=== PATIENT | female | born 1945 | race Caucasian/White ===

== ENCOUNTER 2017-03-02 17:52 | Observation (INO) | payer OTHER, MEDICAID ==
[2017-03-02] MEDS ORDERED: ZOFRAN INJ 4 MG VIAL IVP PRN (18:23)
[2017-03-02] MEDS ORDERED: NS 1000 ML 1,000 ML IV ONE (19:00)
[2017-03-02 20:57] LABS: BILIRUBIN,URINE NEGATIVE (NEGATIVE); BLOOD/HEMOGLOBIN,URINE 3+ (NEGATIVE); GLUCOSE, URINE NEGATIVE (NEGATIVE); KETONES,URINE 3+ (NEGATIVE); LEUKOCYTE ESTERASE ,URINE 3+ (NEGATIVE); NITRITES,URINE NEGATIVE (NEGATIVE); PROTEIN,URINE 2+ (NEGATIVE); UROBILINOGEN,URINE NORMAL (NORMAL)
[2017-03-02 21:04] LABS: AMORPHOUS SEDIMENT,UR 1+ /HPF (NEGATIVE); APPEARANCE,URINE HAZY (CLEAR); BACTERIA,URINE 2+ /HPF (NEGATIVE); COLOR,URINE DARK YELLOW (YELLOW); HYALINE CASTS, URINE FEW /LPF (NEGATIVE); RBC,URINE 15-17 /HPF (NEGATIVE); SQUAMOUS EPITHELIAL CELL,UR FEW /HPF (NEGATIVE)
[2017-03-02 21:39] LABS: BASOPHILS % (AUTO) 0.6 % (0.2-1.0); EOSINOPHILS % (AUTO) 0.3 % (0.9-2.9); HEMATOCRIT 34.4 % (42.0-54.0); HEMOGLOBIN 11.2 g/dL (13.5-18.0); LYMPHOCYTES # (AUTO) 1.3 X10^3/uL (1.3-2.9); LYMPHOCYTES % (AUTO) 17.8 % (21.0-51.0); MEAN CORPUSCULAR HEMOGLOBIN 28.4 pg (27.0-34.0); MEAN CORPUSCULAR HGB CONC 32.5 g/dL (33.0-35.0); MEAN CORPUSCULAR VOLUME 87.3 fL (80.0-100.0); MEAN PLATELET VOLUME 9.1 fL (7.4-11.0); MONOCYTES # (AUTO) 0.6 x10^3/uL (0.3-0.8); MONOCYTES % (AUTO) 8.3 % (0.0-13.0); NEUTROPHILS # (AUTO) 5.2 x10^3/uL (2.2-4.8); PLATELET COUNT 176 X10^3/uL (150.0-450.0); RED BLOOD COUNT 3.94 X10^6/uL (4.7-6.0); RED CELL DISTRIBUTION WIDTH 13.7 % (11.6-16.5); WHITE BLOOD COUNT 7.1 X10^3/uL (3.6-10.0)
[2017-03-02 21:53] LABS: ALANINE AMINOTRANSFERASE 24 Units/L (12-78); ALBUMIN 3.6 g/dL (3.4-5.0); ALKALINE PHOSPHATASE 33 Units/L (46-116); AMYLASE 44 Units/L (25-115); ASPARTATE AMINO TRANSFERASE 27 Units/L (15-37); BLOOD UREA NITROGEN 15 mg/dL (7-18); CARBON DIOXIDE 29.1 mmol/L (21-32); CHLORIDE 106 mmol/L (98-107); CREATININE 0.72 mg/dL (0.70-1.30); GLUCOSE 98 mg/dL (65-99); LIPASE 90 Units/L (73-393); SODIUM 143 mmol/L (136-145); TOTAL PROTEIN 7.7 g/dL (6.4-8.2); eGFR BLACK RACES > 60 (>60); eGFR NON BLACK RACES > 60 (>60)
[2017-03-02 22:51] VITALS: BMI 25.8
[2017-03-03] MEDS: PROTONIX INJ 40 MG VIAL IVP SCH ×3 (00:22→21:35)
[2017-03-03 06:11] LABS: BASOPHILS # (AUTO) 0.1 X10^3/uL (0.0-0.1); BASOPHILS % (AUTO) 0.9 % (0.2-1.0); EOSINOPHILS # (AUTO) 0.1 x10^3/uL (0.0-0.2); EOSINOPHILS % (AUTO) 1.3 % (0.9-2.9); HEMATOCRIT 31.3 % (36.0-47.0); HEMOGLOBIN 10.3 g/dL (12.0-16.0); LYMPHOCYTES # (AUTO) 1.4 X10^3/uL (1.3-2.9); LYMPHOCYTES % (AUTO) 25.8 % (21.0-51.0); MEAN PLATELET VOLUME 9.6 fL (7.4-11.0); MONOCYTES # (AUTO) 0.6 x10^3/uL (0.3-0.8); MONOCYTES % (AUTO) 10.8 % (0.0-13.0); NEUTROPHILS # (AUTO) 3.3 x10^3/uL (2.2-4.8); NEUTROPHILS % (AUTO) 61.2 % (42.0-75.0); PLATELET COUNT 148 X10^3/uL (150.0-450.0); RED BLOOD COUNT 3.56 X10^6/uL (3.5-5.4); RED CELL DISTRIBUTION WIDTH 13.2 % (11.6-16.5); WHITE BLOOD COUNT 5.3 X10^3/uL (3.6-10.0)
[2017-03-03 06:57] LABS: ALANINE AMINOTRANSFERASE 21 Units/L (12-78); ALBUMIN 2.9 g/dL (3.4-5.0); ALKALINE PHOSPHATASE 31 Units/L (46-116); ASPARTATE AMINO TRANSFERASE 24 Units/L (15-37); BLOOD UREA NITROGEN 12 mg/dL (7-18); CALCIUM 8.5 mg/dL (8.5-10.1); CARBON DIOXIDE 28.2 mmol/L (21-32); CHLORIDE 110 mmol/L (98-107); COR CA(FOR HYPOALB) 9.4 mg/dL (8.5-10.1); CREATININE 0.68 mg/dL (0.55-1.02); GLUCOSE 77 mg/dL (65-99); SODIUM 146 mmol/L (136-145); TOTAL PROTEIN 6.5 g/dL (6.4-8.2); eGFR BLACK RACES > 60 (>60); eGFR NON BLACK RACES > 60 (>60)
--- NOTE | 2017-03-03 07:05 | CT ---
CT abdomen and pelvis without contrast Indication: Severe abdominal pain Comparison: None Technique: CT images of the abdomen and pelvis were obtained without contrast. Automatic exposure co ntrol was utilized. Findings: There is moderate to advanced spine DJD with lumbar dextroscoliosis. No aggressive osseous lesion. The lung bases are clear. The gallbladder is surgically absent. Within the limitations of a noncontrast study, the liver, sple en, stomach, duodenum, pancreas, adrenals, and right kidney are unremarkable. There is a nonobstruct ing 5 mm left lower pole renal stone. No ureteral stone identified. No significant thickening or dil atation of the lower GI tract is observed. The appendix is not identified, but there is no marked pe ricecal inflammation to suggest acute appendicitis. The uterus is absent. The urinary bladder is unr emarkable. There is liquid fecal material within the rectum, consistent with diarrhea, but the rectu m was otherwise unremarkable. No free fluid or adenopathy identified. Impression: No acute process or other etiology for patient's symptoms identified. Nonobstructing left nephrolithiasis and other findings as above. Reported By:
[2017-03-03] MEDS: NS 1000 ML 1,000 ML IV SCH ×2 (07:23→21:36)
[2017-03-03] MEDS ORDERED: TUCKS MEDICATED PAD TOP PRN (10:59)
[2017-03-03] MEDS: ROCEPHIN VIAL 1 GM 1 GM in NS 50 ML IV + SPIKE MINIBAG* 50 ML IV SCH (11:23)
[2017-03-03] MEDS: BUTT CREAM (COMPOUND) TOP SCH (11:23)
[2017-03-03] MEDS: NYSTATIN CREAM TOP SCH (11:23)
[2017-03-03] MEDS: VITAMIN B-12 PO SCH (11:24)
[2017-03-03] MEDS: PATIENT'S HOME MEDICATION (Mirabegron [Myrbetriq] 25 MG) PO SCH ×2 (11:51→11:52)
[2017-03-03] MEDS: THYROID 60 MG PO SCH (11:51)
[2017-03-03 11:56] LABS: CRYPTOSPORIDIUM PARVUM ANTIGEN NEGATIVE (NEGATIVE); GIARDIA LAMBLIA ANTIGEN NEGATIVE (NEGATIVE)
[2017-03-03] MEDS ORDERED: DETROL LA 4 MG CAP EXT REL PO SCH (12:00)
--- NOTE | 2017-03-03 15:29 | DR.H&P ---
H&P - History & Physical for Day of: H&P Date: 03/02/17 - Chief Complaint Chief Complaint: abdominal pain, nausea vomiting diarrhea - Allergies Allergies/Adverse Reactions: Allergies Allergy/AdvReac Type Severity Reaction Status Date / Time No Known Drug Allergy Allergy Verified 03/02/17 22:52 - History of Present Illness History of Present Illness: patient is a 71-year-old white female who was admitted with abdominal pain nausea vomiting and diarrhea. Patient has a past medical history of gastric tumor which was removed at [facility] in [place]. Patient's daughter states tumor came back with clear margins. Patient is not currently on any chemotherapy or radiation. Patient's oncologist is located at [facility]. Patient also has a history of DVT and is on Coumadin therapy. He states patient had been doing fine post operatively until one day prior to admission she had loss of appetite and onset of nausea and vomiting and diarrhea. He should've CT scan of abdomen and pelvis had no acute findings. Patient was noted to have a UTI culture pending. Plan to continue IV hydration pain and nausea control, repeat a.m. labs. - Past Medical History Past Medical History: Arthritis, Dyslipidemia, GERD, Hypertension, Hypothyroidism, Kidney Stones Additional Medical History: dvt - Past Surgical History Surgical History: , Cholecystectomy, Hysterectomy - Social History Does patient currently use any type of tobacco product: No Have you used tobacco products in the last 12 months: No Type of Tobacco Use: None Alcohol Use: None Drug Use: None - Medications Home Medications: Cyanocobalamin [VITAMIN B-12 500 MCG *] 1,000 mcg PO DAILY 03/03/17 [History Confirmed 03/03/17] Mirabegron [Myrbetriq] 25 mg PO DAILY 03/03/17 [History Confirmed 03/03/17] Nystatin (Topical) [Nystatin] 1 applic TOP BID 03/03/17 [History Confirmed 03/03] Pantoprazole Sodium 40 mg [PROTONIX 40 MG *] 1 tab PO DAILY 03/03/17 [History Confirmed 03/03/17] Thyroid [Portal Thyroid (pork)] 60 mg PO DAILY 03/03/17 [History Confirmed 03/03] Warfarin Sodium [COUMADIN 7.5 MG *] 7.5 mg PO DAILY 03/03/17 [History Confirmed 03/03/17] Warfarin Sodium [Warfarin Sodium] 5 mg PO DAILY 03/03/17 [History Confirmed ] - Review of Systems Constitutional: Weakness Eyes: No Symptoms Reported ENT: No Symptoms Reported Respiratory: No Symptoms Reported Cardiovascular: Edema Gastrointestinal: Nausea, Vomiting, Abdominal Pain, Diarrhea Genitourinary: No Symptoms Reported Musculoskeletal: Back Pain, Leg Pain Skin: No Symptoms Reported Neurological: No Symptoms Reported - Physical Exam Vital Signs: Temperature 97.7 F Pulse Rate [Right Brachial] 68 Pulse Rate [Right] 70 Respiratory Rate 18 Blood Pressure [Right Arm] 138/65 O2 Sat by Pulse Oximetry 94 Oriented: Normal Eyes: Normal Ear: Normal Nose: Normal Throat: Dry Respiratory: Clear Throughout Cardiovascular: Normal, Edema : Normal Auscultation: Bowel Sounds: Normal Palpation: Normal Tenderness: Diffuse Skin: Decreased Turgur Musculoskeletal: Back:Lumbar Psychiatric: Normal Mood Description: Calm Speech Pattern: Clear, Appropriate - Assessment/Plan (1) Abdominal pain Qualifiers: Abdominal location: A Status: Acute Plan: ADMIT FOR IV HYDRATION, STOOL STUDIES. TREATMENT OF UTI, IV ATBX THERAPY. VOLUME REPLACMENT, PAIN AND NAUSEA CONTROL. CT SCAN ABD/PELVIS (2) Nausea, vomiting and diarrhea Status: Acute (3) History of gastric cancer Status: Acute (4) Hypothyroid Qualifiers: Hypothyroidism type: H Status: Acute (5) GERD (gastroesophageal reflux disease) Qualifiers: Esophagitis presence: E Status: Acute
--- NOTE | 2017-03-03 15:33 | PCM.PROG ---
Progress Note - Progress Note for Day of Date: 03/03/17 - Subjective Subjective: patient was admitted one day ago with abdominal pain nausea vomiting and diarrhea. Patient states she feels much improved this a.m. with mild abdominal cramping. Patient denies any vomiting. Patient did complain of loose stool this a.m. and stool specimens were collected. Patient was noted to have a UTI on admission, will continue IV antibiotics cultures are pending. Attempt to obtain pathology report from [facility] following gastric tumor removal. Plan to continue IV hydration pain and nausea control will repeat a.m. labs - Past Medical Family Social History Past Med/Fam/Surg Hx: No changes since H&P Allergies: Allergies No Known Drug Allergy Allergy (Verified 03/02/17 22:52) - Review of Systems ROS: No change since H&P - Vital Signs and I&O's Vital Signs: Temperature 97.7 F Pulse Rate [Right Brachial] 68 Pulse Rate [Right] 70 Respiratory Rate 18 Blood Pressure [Right Arm] 138/65 O2 Sat by Pulse Oximetry 94 Intake and Output: Intake & Output 03/01/17 03/02/17 03/03/17 03/04/17 11:59 11:59 11:59 11:59 Intake Total 451 Balance 451 - Physical Exam Oriented: Normal Eyes: Normal Ear: Normal Nose: Normal Throat: Dry Cardiovascular: Normal, Edema : Normal Auscultation: Bowel Sounds: Normal Tenderness: Epigastric Skin: Decreased Turgur Musculoskeletal: Back:Lumbar Psychiatric: Normal Mood Description: Calm Speech Pattern: Clear, Appropriate - Laboratory and Diagnostics Result Diagrams: 03/03/17 04:25 03/03/17 04:25 Labs: 03/02/17 20:30 Urine,Clean Catch Urine Culture - Final 03/03/17 09:44 Stool - Final Laboratory WBC 5.3 X10^3/uL (3.6-10.0) 03/03/17 04:25 RBC 3.56 X10^6/uL (3.5-5.4) 03/03/17 04:25 Hgb 10.3 g/dL (12.0-16.0) L 03/03/17 04:25 Hct 31.3 % (36.0-47.0) L 03/03/17 04:25 MCV 88.0 fL (80.0-100.0) 03/03/17 04:25 MCH 29.0 pg (27.0-34.0) 03/03/17 04:25 MCHC 33.0 g/dL (33.0-35.0) 03/03/17 04:25 RDW 13.2 % (11.6-16.5) 03/03/17 04:25 Plt Count 148 X10^3/uL (150.0-450.0) L 03/03/17 04:25 MPV 9.6 fL (7.4-11.0) 03/03/17 04:25 Neut % 61.2 % (42.0-75.0) 03/03/17 04:25 Lymph % 25.8 % (21.0-51.0) 03/03/17 04:25 [place] % 10.8 % (0.0-13.0) 03/03/17 04:25 Eos % 1.3 % (0.9-2.9) 03/03/17 04:25 Baso % 0.9 % (0.2-1.0) 03/03/17 04:25 Neut # 3.3 x10^3/uL (2.2-4.8) 03/03/17 04:25 Lymph # 1.4 X10^3/uL (1.3-2.9) 03/03/17 04:25 [place] # 0.6 x10^3/uL (0.3-0.8) 03/03/17 04:25 Eos # 0.1 x10^3/uL (0.0-0.2) 03/03/17 04:25 Baso # 0.1 X10^3/uL (0.0-0.1) 03/03/17 04:25 Absolute Nucleated RBC 0.1 /100WBC 03/03/17 04:25 INR Target Range - 03/03/17 04:25 INR 2.62 (0.8-1.3) H 03/03/17 04:25 Sodium 146 mmol/L (136-145) H 03/03/17 04:25 Corrected Sodium TNP 03/03/17 04:25 Potassium 3.6 mmol/L (3.5-5.1) 03/03/17 04:25 Chloride 110 mmol/L (98-107) H 03/03/17 04:25 Carbon Dioxide 28.2 mmol/L (21-32) 03/03/17 04:25 BUN 12 mg/dL (7-18) 03/03/17 04:25 Creatinine 0.68 mg/dL (0.55-1.02) 03/03/17 04:25 Est GFR (MDRD) Af Amer > 60 (>60) 03/03/17 04:25 Est GFR (MDRD) Non-Af > 60 (>60) 03/03/17 04:25 Glucose 77 mg/dL (65-99) 03/03/17 04:25 Calcium 8.5 mg/dL (8.5-10.1) 03/03/17 04:25 Corrected Calcium 9.4 mg/dL (8.5-10.1) 03/03/17 04:25 Total Bilirubin 0.80 mg/dL (0.2-1.0) 03/03/17 04:25 AST 24 Units/L (15-37) 03/03/17 04:25 ALT 21 Units/L (12-78) 03/03/17 04:25 Alkaline Phosphatase 31 Units/L (46-116) L 03/03/17 04:25 Total Protein 6.5 g/dL (6.4-8.2) 03/03/17 04:25 Albumin 2.9 g/dL (3.4-5.0) L 03/03/17 04:25 Globulin 3.6 g/dL (2.5-4.5) 03/03/17 04:25 Albumin/Globulin Ratio 0.8 Ratio (1.1-2.1) L 03/03/17 04:25 Amylase 44 Units/L (25-115) 03/02/17 21:10 Lipase 90 Units/L (73-393) 03/02/17 21:10 Specimen Type Clean catch urine 03/02/17 20:30 Urine Color Dark yellow (YELLOW) 03/02/17 20:30 Urine Appearance Hazy (CLEAR) 03/02/17 20:30 Urine pH 5.0 (5.0 - 8.0) 03/02/17 20:30 Ur Specific [place] 1.025 (1.000-1.030) 03/02/17 20:30 Urine Protein 2+ (NEGATIVE) 03/02/17 20:30 Urine Glucose (UA) Negative (NEGATIVE) 03/02/17 20:30 Urine Ketones 3+ (NEGATIVE) 03/02/17 20:30 Urine Occult Blood 3+ (NEGATIVE) 03/02/17 20:30 Urine Nitrite Negative (NEGATIVE) 03/02/17 20:30 Urine Bilirubin Negative (NEGATIVE) 03/02/17 20:30 Urine Urobilinogen Normal (NORMAL) 03/02/17 20:30 Ur Leukocyte Esterase 3+ (NEGATIVE) 03/02/17 20:30 Urine RBC 15-17 /HPF (NEGATIVE) 03/02/17 20:30 Urine WBC 24-26 /HPF (NEGATIVE) 03/02/17 20:30 Ur Squamous Epith Cells Few /HPF (NEGATIVE) 03/02/17 20:30 Amorphous Sediment 1+ /HPF (NEGATIVE) 03/02/17 20:30 Urine Bacteria 2+ /HPF (NEGATIVE) 03/02/17 20:30 Hyaline Casts Few /LPF (NEGATIVE) 03/02/17 20:30 Ur Culture Indicated? Yes/culture set up 03/02/17 20:30 Stool Description 5g brown liquid 03/03/17 09:44 Stl Occult Blood (IFOB) Positive (NEGATIVE) A 03/03/17 09:44 Cryptosporid parvum Ag Negative (NEGATIVE) 03/03/17 09:44 E. histolytica Antigen Negative (NEGATIVE) 03/03/17 09:44 Giardia lamblia Ag Negative (NEGATIVE) 03/03/17 09:44 - Plan (1) UTI (urinary tract infection) Status: Acute Qualifiers: Urinary tract infection type: U Hematuria presence: H Indwelling urinary catheter type: I Encounter type: E Plan: CONTINUE IV ATBX, CULTURE PENDING. IV AND PO HYDRATION (2) Abdominal pain Status: Acute Qualifiers: Abdominal location: A Plan: CONTINUE PAIN CONTROL. STOOL STUDIES PENDING. REPEAT AM LABS (3) Nausea, vomiting and diarrhea Status: Acute (4) History of gastric cancer Status: Acute (5) Hypothyroid Status: Acute Qualifiers: Hypothyroidism type: H Plan: RESUME HOME MEDS (6) GERD (gastroesophageal reflux disease) Status: Acute Qualifiers: Esophagitis presence: E
[2017-03-04 06:16] LABS: BASOPHILS % (AUTO) 0.8 % (0.2-1.0); EOSINOPHILS # (AUTO) 0.1 x10^3/uL (0.0-0.2); EOSINOPHILS % (AUTO) 2.6 % (0.9-2.9); HEMATOCRIT 31.3 % (36.0-47.0); HEMOGLOBIN 10.3 g/dL (12.0-16.0); LYMPHOCYTES # (AUTO) 1.9 X10^3/uL (1.3-2.9); LYMPHOCYTES % (AUTO) 35.2 % (21.0-51.0); MEAN CORPUSCULAR HEMOGLOBIN 29.1 pg (27.0-34.0); MEAN CORPUSCULAR HGB CONC 32.9 g/dL (33.0-35.0); MEAN CORPUSCULAR VOLUME 88.4 fL (80.0-100.0); MEAN PLATELET VOLUME 9.5 fL (7.4-11.0); MONOCYTES # (AUTO) 0.5 x10^3/uL (0.3-0.8); MONOCYTES % (AUTO) 9.8 % (0.0-13.0); NEUTROPHILS # (AUTO) 2.8 x10^3/uL (2.2-4.8); NEUTROPHILS % (AUTO) 51.6 % (42.0-75.0); PLATELET COUNT 156 X10^3/uL (150.0-450.0); RED BLOOD COUNT 3.55 X10^6/uL (3.5-5.4); RED CELL DISTRIBUTION WIDTH 13.3 % (11.6-16.5); WHITE BLOOD COUNT 5.4 X10^3/uL (3.6-10.0)
[2017-03-04 06:18] LABS: ALANINE AMINOTRANSFERASE 22 Units/L (12-78); ALBUMIN 2.9 g/dL (3.4-5.0); ALKALINE PHOSPHATASE 32 Units/L (46-116); ASPARTATE AMINO TRANSFERASE 25 Units/L (15-37); BLOOD UREA NITROGEN 10 mg/dL (7-18); CALCIUM 8.6 mg/dL (8.5-10.1); CARBON DIOXIDE 27.2 mmol/L (21-32); CHLORIDE 109 mmol/L (98-107); COR CA(FOR HYPOALB) 9.5 mg/dL (8.5-10.1); CREATININE 0.64 mg/dL (0.55-1.02); GLUCOSE 83 mg/dL (65-99); SODIUM 145 mmol/L (136-145); TOTAL PROTEIN 6.5 g/dL (6.4-8.2); eGFR BLACK RACES > 60 (>60); eGFR NON BLACK RACES > 60 (>60)
[2017-03-04] MEDS ORDERED: COUMADIN TAB 5 MG PO SCH (09:00)
[2017-03-04] MEDS ORDERED: COUMADIN TAB 7.5 MG PO SCH (09:00)
[2017-03-04] MEDS: ROCEPHIN VIAL 1 GM 1 GM in NS 50 ML IV + SPIKE MINIBAG* 50 ML IV SCH (09:42)
[2017-03-04] MEDS: PROTONIX INJ 40 MG VIAL IVP SCH (09:43)
[2017-03-04] MEDS: VITAMIN B-12 PO SCH (09:43)
[2017-03-04] MEDS: NYSTATIN CREAM TOP SCH (11:14)
[2017-03-04] MEDS: BUTT CREAM (COMPOUND) TOP SCH (11:14)
[2017-03-04] MEDS: THYROID 60 MG PO SCH (12:17)
[2017-03-04] MEDS: PATIENT'S HOME MEDICATION (Mirabegron [Myrbetriq] 25 MG) PO SCH (12:17)
[2017-03-04 15:56] VITALS: BP 125/63
== END 2017-03-04 16:25 | disposition home or self-care (01) ==
LOC: EDSEX 17:52 → MED/SURG 17:52
PROVIDERS: ADMIT Internal Medicine; ATTEND Internal Medicine
DX: R10.84 Generalized abdominal pain (principal); R94.31 Abnormal electrocardiogram [ECG] [EKG]; R11.2 Nausea with vomiting, unspecified; N20.0 Calculus of kidney; Z79.01 Long term (current) use of anticoagulants; N39.0 Urinary tract infection, site not specified; Z86.718 Personal history of other venous thrombosis and embolism; E78.2 Mixed hyperlipidemia; K21.9 Gastro-esophageal reflux disease without esophagitis; I10 Essential (primary) hypertension; E03.8 Other specified hypothyroidism; Z85.028 Personal history of other malignant neoplasm of stomach
CPT/HCPCS: 36415; 74176; 80053; 81001; 82150; 82270; 83690; 85025; 85610; 87045; 87086; 87328; 87329; 87336; 87427; 87899; 93005; 93010; 94760; A4222; C9113; G0378; J0696

== ENCOUNTER 2018-08-13 11:58 | Observation (INO) ==
[2018-08-13] MEDS ORDERED: TYLENOL 500 MG TAB EXTRA STRENGTH PO PRN (13:55)
[2018-08-13 14:33] LABS: BASOPHILS # (AUTO) 0.1 X10^3/uL (0.0-0.1); BASOPHILS % (AUTO) 1.1 % (0.2-1.0); EOSINOPHILS # (AUTO) 0.1 x10^3/uL (0.0-0.2); EOSINOPHILS % (AUTO) 1.9 % (0.9-2.9); HEMOGLOBIN 12.3 g/dL (12.0-16.0); LYMPHOCYTES # (AUTO) 1.4 X10^3/uL (1.3-2.9); LYMPHOCYTES % (AUTO) 27.3 % (21.0-51.0); MEAN CORPUSCULAR HEMOGLOBIN 31.3 pg (27.0-34.0); MEAN CORPUSCULAR HGB CONC 34.2 g/dL (33.0-35.0); MEAN CORPUSCULAR VOLUME 91.5 fL (80.0-100.0); MEAN PLATELET VOLUME 8.8 fL (7.4-11.0); MONOCYTES # (AUTO) 0.4 x10^3/uL (0.3-0.8); MONOCYTES % (AUTO) 7.6 % (0.0-13.0); NEUTROPHILS # (AUTO) 3.2 x10^3/uL (2.2-4.8); NEUTROPHILS % (AUTO) 62.1 % (42.0-75.0); PLATELET COUNT 190 X10^3/uL (150.0-450.0); RED BLOOD COUNT 3.94 X10^6/uL (3.5-5.4); RED CELL DISTRIBUTION WIDTH 14.4 % (11.6-16.5); WHITE BLOOD COUNT 5.1 X10^3/uL (3.6-10.0)
[2018-08-13 14:44] LABS: ALANINE AMINOTRANSFERASE 23 Units/L (12-78); ALBUMIN 3.4 g/dL (3.4-5.0); ALKALINE PHOSPHATASE 53 Units/L (46-116); ASPARTATE AMINO TRANSFERASE 22 Units/L (15-37); BLOOD UREA NITROGEN 15 mg/dL (7-18); CALCIUM 8.1 mg/dL (8.5-10.1); CARBON DIOXIDE 26.7 mmol/L (21-32); CHLORIDE 105 mmol/L (98-107); CREATININE 0.87 mg/dL (0.55-1.02); SODIUM 140 mmol/L (136-145); TOTAL PROTEIN 7.5 g/dL (6.4-8.2); eGFR NON BLACK RACES > 60 (>60)
[2018-08-13 15:29] LABS: BILIRUBIN,URINE NEGATIVE (NEGATIVE); BLOOD/HEMOGLOBIN,URINE NEGATIVE (NEGATIVE); GLUCOSE, URINE NEGATIVE (NEGATIVE); KETONES,URINE NEGATIVE (NEGATIVE); LEUKOCYTE ESTERASE ,URINE 1+ (NEGATIVE); NITRITES,URINE NEGATIVE (NEGATIVE); PROTEIN,URINE NEGATIVE (NEGATIVE); UROBILINOGEN,URINE NORMAL (NORMAL)
--- NOTE | 2018-08-13 15:34 | CT ---
CT head without contrast Indication: Altered mental status Comparison: None Technique: CT images of the head were obtained without contrast. Automatic exposure control was utilized. Findings: There is age-appropriate generalized brain atrophy with concomitant ventricular and sulcal enlargement. Periventricular and deep white matter hypoattenuation is most compatible with chronic microangiopathy. There is round hypodense 7 mm focus within the right basal ganglia, most compatible with chronic lacunar infarct or prominent perivascular space. There is no acute bleed, mass effect, or abnormal extra-axial collection. No suspicious osseous lesion. The visualized paranasal sinuses and mastoid air cells are grossly clear. Impression: No acute intracranial abnormality. Chronic findings as above. Reported By:
[2018-08-13 15:35] LABS: APPEARANCE,URINE HAZY (CLEAR); COLOR,URINE YELLOW (YELLOW)
[2018-08-13 15:38] LABS: BACTERIA,URINE 2+ /HPF (NEGATIVE); RBC,URINE 0-2 /HPF (NONE SEEN); SQUAMOUS EPITHELIAL CELL,UR RARE /HPF (NEGATIVE)
[2018-08-13 16:57] VITALS: BMI 27.4
--- NOTE | 2018-08-13 22:09 | US ---
History: Pain Exam: Abdominal ultrasound Comparison: None Technique: Multiple grayscale and color flow Doppler images of the abdomen were obtained. Findings: The liver is normal size and echogenicity. There is hepatopetal flow in the portal vein and visualized hepatic veins and IVC are unremarkable. No focal lesion is seen. The gallbladder has been removed. The common duct measures 3 mm. The visualized pancreas and aorta are unremarkable. The spleen measures 10 cm in length and is normal in echogenicity. Both kidneys measure 9-10 cm in length and are normal in echogenicity with no hydronephrosis, renal stone, or mass. IMPRESSION: Status post cholecystectomy with no acute abnormality seen. Normal liver, common bile duct, and pancreas . Reported By:
[2018-08-14] MEDS: NS 1000 ML 1,000 ML IV SCH ×4 (02:27→16:53)
[2018-08-14 05:23] LABS: BASOPHILS # (AUTO) 0.1 X10^3/uL (0.0-0.1); BASOPHILS % (AUTO) 1.4 % (0.2-1.0); EOSINOPHILS # (AUTO) 0.1 x10^3/uL (0.0-0.2); EOSINOPHILS % (AUTO) 2.7 % (0.9-2.9); HEMATOCRIT 37.4 % (36.0-47.0); HEMOGLOBIN 12.7 g/dL (12.0-16.0); LYMPHOCYTES # (AUTO) 1.5 X10^3/uL (1.3-2.9); LYMPHOCYTES % (AUTO) 28.2 % (21.0-51.0); MEAN CORPUSCULAR HEMOGLOBIN 31.1 pg (27.0-34.0); MEAN CORPUSCULAR VOLUME 91.5 fL (80.0-100.0); MEAN PLATELET VOLUME 9.4 fL (7.4-11.0); MONOCYTES # (AUTO) 0.5 x10^3/uL (0.3-0.8); MONOCYTES % (AUTO) 9.2 % (0.0-13.0); NEUTROPHILS # (AUTO) 3.1 x10^3/uL (2.2-4.8); NEUTROPHILS % (AUTO) 58.5 % (42.0-75.0); PLATELET COUNT 193 X10^3/uL (150.0-450.0); RED BLOOD COUNT 4.09 X10^6/uL (3.5-5.4); RED CELL DISTRIBUTION WIDTH 14.2 % (11.6-16.5); WHITE BLOOD COUNT 5.4 X10^3/uL (3.6-10.0)
[2018-08-14 06:28] LABS: ALANINE AMINOTRANSFERASE 21 Units/L (12-78); ALBUMIN 2.9 g/dL (3.4-5.0); ALKALINE PHOSPHATASE 54 Units/L (46-116); ASPARTATE AMINO TRANSFERASE 19 Units/L (15-37); BLOOD UREA NITROGEN 14 mg/dL (7-18); CARBON DIOXIDE 29.9 mmol/L (21-32); CHLORIDE 108 mmol/L (98-107); COR CA(FOR HYPOALB) 8.9 mg/dL (8.5-10.1); CREATININE 0.89 mg/dL (0.55-1.02); MAGNESIUM 1.9 mg/dL (1.7-2.9); SODIUM 141 mmol/L (136-145); TOTAL PROTEIN 6.9 g/dL (6.4-8.2); eGFR NON BLACK RACES > 60 (>60)
--- NOTE | 2018-08-14 09:07 | DR.H&P ---
H&P - History & Physical for Day of: H&P Date: 08/13/18 - Chief Complaint Chief Complaint: AMS - History of Present Illness History of Present Illness: The patient is a 72-year-old white female who presents to the clinic with her daughter. The daughter states that she has been up for 48 hours. States she is talking nonstop. Patient does have underlying history of progressive dementia. Denies known fever. States appetite is decreased. Daughter states that she frequently has to urinate. Patient denies nausea or vomiting. Does have complaints of right side abdominal pain x 6mths. Did have recent fall but did not hit head. Patient is refusing routine meds. Patient and daughter is agreeable for admission. - Past Medical History Past Medical History: Arthritis, Dyslipidemia, GERD, Hypertension, Hypothyroidism, Kidney Stones Additional Medical History: dvt, Gastric lesion - benign - Past Surgical History Surgical History: , Cholecystectomy, Hysterectomy, Other - Social History Does patient currently use any type of tobacco product: No Type of Tobacco Use: None Does any household member use tobacco: No Alcohol Use: None Drug Use: Prescription Drugs - Medications Home Medications: No Known Drug Allergies Allergy (Verified 08/13/18 16:19) CONTINUE taking the following medications levothyroxine [Synthroid] 100 mcg PO DAILY 08/13/18 [History] pantoprazole [Protonix] 40 mg PO DAILY 08/13/18 [History] - Review of Systems Constitutional: Weakness Eyes: No Symptoms Reported ENT: No Symptoms Reported Respiratory: No Symptoms Reported Cardiovascular: No Symptoms Reported Gastrointestinal: Abdominal Pain Genitourinary: Frequency Musculoskeletal: No Symptoms Reported Skin: No Symptoms Reported Neurological: Confusion - Physical Exam Vital Signs: Temperature 98.7 F Pulse Rate [Right Brachial] 80 Respiratory Rate 20 Blood Pressure [Right Arm] 130/70 Blood Pressure 125/63 O2 Sat by Pulse Oximetry 95 Oriented: Person Eyes: Normal Ear: Normal Nose: Normal Throat: Normal Respiratory: Clear Throughout Cardiovascular: Normal : Normal Auscultation: Bowel Sounds: Normal Palpation: Normal Tenderness: Normal Skin: Decreased Turgur Musculoskeletal: Normal Psychiatric: Other (Very talkative - rambling) Mood Description: Calm Affect: Normal Speech Pattern: Clear - Assessment/Plan (1) Altered mental state Status: Acute Plan: Labs, UA (2) Dementia Status: Acute Plan: Restart home meds (3) UTI (urinary tract infection) Status: Acute Plan: Rocephin IV, Culture (4) Abdominal pain Qualifiers: Abdominal location: right upper quadrant Qualified Code(s): R10.11 - Right upper quadrant pain Status: Acute Plan: US ABD - Allergies Allergies/Adverse Reactions: Allergies Allergy/AdvReac Type Severity Reaction Status Date / Time No Known Drug Allergies Allergy Verified 08/13/18 16:19
[2018-08-14 09:38] LABS: FREE T4 (FREE THYROXINE) 0.47 ng/dL (0.76-1.46); TSH (3RD GENERATION) 32.25 uIU/mL (0.358-3.74)
[2018-08-14] MEDS ORDERED: PROTONIX TAB 40 MG PO ONE (09:45)
[2018-08-14] MEDS: ROCEPHIN VIAL 1 GRAM IVP SCH (10:23)
[2018-08-14] MEDS: SYNTHROID 100 mcg TAB PO SCH (10:23)
--- NOTE | 2018-08-14 13:42 | PCM.PROG ---
Progress Note - Progress Note for Day of Date of Exam: 08/14/18 - Subjective Subjective: 72 WF ADMITTED ON 08/13 WITH INCREASED CONFUSION AND CO ABDOMINAL PAIN. PT HAS HX OF UTI'S, FAMILY CONCERNED SHE HAS "KIDNEY INFECTION" PT HAD CT HEAD ON ADMISSION WITHOUT ACUTE FINDINGS. PT HAS BEEN DIAGNOSED WITH DEMENTIA. PT REPORTS THIS AM SHE HAS BEEN VERY JANNA, LOSSED HER SPOUSE. PT MORE DEPRESSED AND FAMILY REPORTS INSOMNIA. - Past Medical Family Social History Past Med/Fam/Surg Hx: No changes since H&P Allergies: Allergies No Known Drug Allergies Allergy (Verified 08/13/18 16:19) - Review of Systems ROS: No change since H&P - Vital Signs and I&O's Vital Signs: Temperature 97.9 F Pulse Rate [Right Brachial] 72 Respiratory Rate 20 Blood Pressure [Right Arm] 133/68 Blood Pressure 125/63 O2 Sat by Pulse Oximetry 97 Intake and Output: Intake & Output 08/12/18 08/13/18 08/14/18 08/15/18 11:59 11:59 11:59 11:59 Intake Total 2081 Output Total 300 / 300 Balance 1781 / 1781 - Physical Exam Oriented: Person Eyes: Normal Ear: Normal Nose: Normal Throat: Normal Respiratory: Diminished Cardiovascular: Normal : Normal Auscultation: Bowel Sounds: Normal Tenderness: Normal Skin: Decreased Turgur Musculoskeletal: Normal Psychiatric: Anxiety, Other (Very talkative - rambling) Affect: Anxious, Normal Speech Pattern: Clear, Excessive - Laboratory and Diagnostics Result Diagrams: 08/14/18 04:47 08/14/18 04:47 Labs: 08/13/18 15:15 Urine,Clean Catch Urine Culture - Preliminary Laboratory WBC 5.4 X10^3/uL (3.6-10.0) 08/14/18 04:47 RBC 4.09 X10^6/uL (3.5-5.4) 08/14/18 04:47 Hgb 12.7 g/dL (12.0-16.0) 08/14/18 04:47 Hct 37.4 % (36.0-47.0) 08/14/18 04:47 MCV 91.5 fL (80.0-100.0) 08/14/18 04:47 MCH 31.1 pg (27.0-34.0) 08/14/18 04:47 MCHC 34.0 g/dL (33.0-35.0) 08/14/18 04:47 RDW 14.2 % (11.6-16.5) 08/14/18 04:47 Plt Count 193 X10^3/uL (150.0-450.0) 08/14/18 04:47 MPV 9.4 fL (7.4-11.0) 08/14/18 04:47 Neut % (Auto) 58.5 % (42.0-75.0) 08/14/18 04:47 Lymph % (Auto) 28.2 % (21.0-51.0) 08/14/18 04:47 [place] % (Auto) 9.2 % (0.0-13.0) 08/14/18 04:47 Eos % (Auto) 2.7 % (0.9-2.9) 08/14/18 04:47 Baso % (Auto) 1.4 % (0.2-1.0) H 08/14/18 04:47 Neut # (Auto) 3.1 x10^3/uL (2.2-4.8) 08/14/18 04:47 Lymph # (Auto) 1.5 X10^3/uL (1.3-2.9) 08/14/18 04:47 [place] # (Auto) 0.5 x10^3/uL (0.3-0.8) 08/14/18 04:47 Eos # (Auto) 0.1 x10^3/uL (0.0-0.2) 08/14/18 04:47 Baso # (Auto) 0.1 X10^3/uL (0.0-0.1) 08/14/18 04:47 Absolute Nucleated RBC 0.0 /100WBC 08/14/18 04:47 INR Target Range - 08/14/18 04:47 INR 0.95 (0.8-1.3) 08/14/18 04:47 Sodium 141 mmol/L (136-145) 08/14/18 04:47 Corrected Sodium TNP 08/14/18 04:47 Potassium 4.0 mmol/L (3.5-5.1) 08/14/18 04:47 Chloride 108 mmol/L (98-107) H 08/14/18 04:47 Carbon Dioxide 29.9 mmol/L (21-32) 08/14/18 04:47 BUN 14 mg/dL (7-18) 08/14/18 04:47 Creatinine 0.89 mg/dL (0.55-1.02) 08/14/18 04:47 Est GFR (MDRD) Af Amer > 60 (>60) 08/14/18 04:47 Est GFR (MDRD) Non-Af > 60 (>60) 08/14/18 04:47 Glucose 94 mg/dL (65-99) 08/14/18 04:47 Calcium 8.0 mg/dL (8.5-10.1) L 08/14/18 04:47 Corrected Calcium 8.9 mg/dL (8.5-10.1) 08/14/18 04:47 Magnesium 1.9 mg/dL (1.7-2.9) 08/14/18 04:47 Total Bilirubin 0.40 mg/dL (0.2-1.0) 08/14/18 04:47 AST 19 Units/L (15-37) 08/14/18 04:47 ALT 21 Units/L (12-78) 08/14/18 04:47 Alkaline Phosphatase 54 Units/L (46-116) 08/14/18 04:47 Total Protein 6.9 g/dL (6.4-8.2) 08/14/18 04:47 Albumin 2.9 g/dL (3.4-5.0) L 08/14/18 04:47 Globulin 4.0 g/dL (2.5-4.5) 08/14/18 04:47 Albumin/Globulin Ratio 0.7 Ratio (1.1-2.1) L 08/14/18 04:47 Free T4 0.47 ng/dL (0.76-1.46) L 08/14/18 05:57 TSH 3rd Generation 32.250 uIU/mL (0.358-3.74) H 08/14/18 05:57 Specimen Type Clean catch urine 08/13/18 15:15 Urine Color Yellow (YELLOW) 08/13/18 15:15 Urine Appearance Hazy (CLEAR) 08/13/18 15:15 Urine pH 6.0 (5.0 - 8.0) 08/13/18 15:15 Ur Specific [place] 1.020 (1.000-1.030) 08/13/18 15:15 Urine Protein Negative (NEGATIVE) 08/13/18 15:15 Urine Glucose (UA) Negative (NEGATIVE) 08/13/18 15:15 Urine Ketones Negative (NEGATIVE) 08/13/18 15:15 Urine Occult Blood Negative (NEGATIVE) 08/13/18 15:15 Urine Nitrite Negative (NEGATIVE) 08/13/18 15:15 Urine Bilirubin Negative (NEGATIVE) 08/13/18 15:15 Urine Urobilinogen Normal (NORMAL) 08/13/18 15:15 Ur Leukocyte Esterase 1+ (NEGATIVE) 08/13/18 15:15 Urine RBC 0-2 /HPF (NONE SEEN) 08/13/18 15:15 Urine WBC 5-10 /HPF (NONE SEEN) 08/13/18 15:15 Ur Squamous Epith Cells Rare /HPF (NEGATIVE) 08/13/18 15:15 Urine Bacteria 2+ /HPF (NEGATIVE) 08/13/18 15:15 Ur Culture Indicated? Yes/culture set up 08/13/18 15:15 - Plan (1) Altered mental state Status: Acute Plan: URINE CULTURE PENDING. GENTLE HYDRATION, ADD CELEXA 10MG QHS FOR DEPR ESSION SYMPTOMS. ABD SERIES, CURRENTLY ON PPI (2) Dementia Status: Acute Plan: Restart home meds (3) UTI (urinary tract infection) Status: Acute Plan: Rocephin IV, Culture (4) Abdominal pain Status: Acute Qualifiers: Abdominal location: right upper quadrant Qualified Code(s): R10.11 - Right upper quadrant pain Plan: US ABD (5) Hypothyroid Status: Chronic Plan: TSH ELEVATED, RESUME LEVOTHYROXINE (6) GERD (gastroesophageal reflux disease) Status: Chronic
--- NOTE | 2018-08-14 14:41 | RAD ---
HISTORY: Abdominal pain. Prior medical history of hypertension. Prior surgical history of hysterectomy and cholecystectomy. Study: Acute abdominal series Comparison: CT scan of the abdomen and pelvis done 03/02/2017. Findings: The trachea is midline. The cardiac silhouette is unremarkable. There is aortic uncoiling. Linear foci of atelectasis are present in the left lung base. No dense consolidation, pleural fluid or pneumothorax is seen. The bony thorax is unremarkable. Flat plate and upright evaluation of the abdomen demonstrates a large amount of stool present throughout the colon. No bowel obstruction or perforation is seen. There is no evidence of free intraperitoneal air or fluid. There are surgical clips from cholecystectomy there is a thoracolumbar scoliosis with multilevel spondylosis.. No pathological soft tissue mass or calcification can be observed. IMPRESSION: 1. Linear foci of atelectasis are present in left lung base. 2. Large amount of stool present throughout the colon. No bowel obstruction or perforation is seen. Reported By:
[2018-08-14] MEDS ORDERED: CELEXA PO SCH (21:00)
[2018-08-15] MEDS: NS 1000 ML 1,000 ML IV SCH ×2 (01:09→06:23)
[2018-08-15 06:15] LABS: ALANINE AMINOTRANSFERASE 18 Units/L (12-78); ALBUMIN 3.2 g/dL (3.4-5.0); ALKALINE PHOSPHATASE 54 Units/L (46-116); ASPARTATE AMINO TRANSFERASE 22 Units/L (15-37); BLOOD UREA NITROGEN 18 mg/dL (7-18); CALCIUM 8.3 mg/dL (8.5-10.1); CARBON DIOXIDE 26.6 mmol/L (21-32); CHLORIDE 101 mmol/L (98-107); COR CA(FOR HYPOALB) 8.9 mg/dL (8.5-10.1); CREATININE 0.81 mg/dL (0.55-1.02); SODIUM 135 mmol/L (136-145); TOTAL PROTEIN 7.6 g/dL (6.4-8.2); eGFR NON BLACK RACES > 60 (>60)
[2018-08-15 06:19] LABS: BASOPHILS % (AUTO) 0.6 % (0.2-1.0); EOSINOPHILS % (AUTO) 0.4 % (0.9-2.9); HEMATOCRIT 37.7 % (36.0-47.0); LYMPHOCYTES % (AUTO) 15.9 % (21.0-51.0); MEAN CORPUSCULAR HEMOGLOBIN 31.4 pg (27.0-34.0); MEAN CORPUSCULAR HGB CONC 34.4 g/dL (33.0-35.0); MEAN CORPUSCULAR VOLUME 91.2 fL (80.0-100.0); MEAN PLATELET VOLUME 9.4 fL (7.4-11.0); MONOCYTES # (AUTO) 0.3 x10^3/uL (0.3-0.8); MONOCYTES % (AUTO) 5.5 % (0.0-13.0); NEUTROPHILS # (AUTO) 4.9 x10^3/uL (2.2-4.8); NEUTROPHILS % (AUTO) 77.6 % (42.0-75.0); PLATELET COUNT 179 X10^3/uL (150.0-450.0); RED BLOOD COUNT 4.13 X10^6/uL (3.5-5.4); RED CELL DISTRIBUTION WIDTH 14.2 % (11.6-16.5); WHITE BLOOD COUNT 6.3 X10^3/uL (3.6-10.0)
[2018-08-15] MEDS: SYNTHROID 100 mcg TAB PO SCH (08:28)
[2018-08-15] MEDS: ROCEPHIN VIAL 1 GRAM IVP SCH (08:29)
[2018-08-15] MEDS ORDERED: PROTONIX TAB 40 MG PO SCH (09:00)
--- NOTE | 2018-08-15 15:48 | VAS ---
HISTORY: 72-year-old female with right leg pain and edema with history of DVT. Study: Venous Doppler bilateral lower extremities. Comparison: None. TECHNIQUE: Multiple gaitan scale and color flow Doppler images of the deep venous system were obtained of the right and left lower extremity. FINDINGS: The deep venous system of the right and left lower extremities were evaluated from the level of the common femoral vein through the popliteal vein. Normal color flow and augmentation can be observed. In addition, normal compression is seen throughout the deep venous system. IMPRESSION: 1. Negative for DVT. Reported By:
[2018-08-15 16:26] VITALS: BP 147/67
== END 2018-08-15 16:45 | disposition home health service (06) ==
LOC: MED/SURG
PROVIDERS: ADMIT Internal Medicine; ATTEND Internal Medicine
CPT/HCPCS: 36415; 70450; 74022; 76700; 80053; 81001; 83735; 84439; 84443; 85025; 85610; 87086; 87088; 87186; 93005; 93010; 93970; 96367; 96374; 97110; 97163; 97167; 97530; A4216; A4222; G0378; J0696; J7030